=== PATIENT | female | born 1960 | race Hispanic/Latino ===

== ENCOUNTER 2017-08-25 08:12 | Day surgery (SDC) | payer OTHER ==
[~2017-08-25] VITALS: Ht 160 cm; Wt 86.2 kg
[~2017-08-25 08:12] MED LIST: ASPI-555 PO; LEVO25TA54 PO; LISI-617 PO; METF500T6 PO; SIMV10TA6 PO; SODIUM CHLORIDE 0.9% 1000ML 1,000 ML IV ONE
[2017-08-25 10:18] VITALS: BP 122/89
[2017-08-25] MEDS ORDERED: PROPOFOL 10 MG/ML 20ML VIAL IV ONE (11:25)
[2017-08-25 11:49] VITALS: BP 81/43
== END 2017-08-25 12:25 ==
LOC: DAH 08:12
PROVIDERS: ATTEND Internal Medicine Gastroenterology
DX: Z12.11 Encounter for screening for malignant neoplasm of colon (principal); Z83.71 Family history of colonic polyps; K57.30 Diverticulosis of large intestine without perforation or abscess without bleeding; Z79.899 Other long term (current) drug therapy; E11.9 Type 2 diabetes mellitus without complications; E78.4 Other hyperlipidemia; Z90.710 Acquired absence of both cervix and uterus; Z98.890 Other specified postprocedural states
CPT/HCPCS: 45378; 82948; A4606; J2704; J7030

== ENCOUNTER → 2021-08-28 | Outpatient (CLI) | payer OTHER ==
[~2021-08-28] MED LIST changes: -ASPI-555 PO; +ASPI-556 PO; -LISI-617 PO; +LISI5TAB21 PO; +METF-444 PO; -METF500T6 PO; -SIMV10TA6 PO; +SIMV10TA97 PO; -SODIUM CHLORIDE 0.9% 1000ML 1,000 ML IV ONE
== END | disposition home or self-care (01) ==
LOC: RAH 08:44
PROVIDERS: ATTEND Nurse Practitioner Family
DX: Z12.31 Encounter for screening mammogram for malignant neoplasm of breast (principal)
CPT/HCPCS: 77067